=== PATIENT | male | born 1995 | race Caucasian/White ===

== ENCOUNTER 2016-04-12 14:40 | Emergency (ER) | payer BC ==
[2016-04-12 14:47] VITALS: BP 131/78; PULSE 64; TEMP 98.4; BMI 20.9
[2016-04-12] MEDS ORDERED: LIDOCAINE 2.5%/PRILOCAINE 2.5% (5 Gram/TUBE) TP ONE (15:40)
[2016-04-12] MEDS ORDERED: AMOX TR/POT CLAV 875MG/125MG TABLETS (FP) PO ONE (16:48)
[2016-04-12] MEDS ORDERED: AMOX TR/POT CLAV 875MG/125MG TABLETS (FP) ONE (16:50)
--- NOTE | 2016-04-12 16:51 | PDOC ---
History of Present Illness - General History Source: Patient Exam Limitations: No Limitations - History of Present Illness Initial Comments: 04/12/16 17:12 The patient is a 21 year old male with a significant past medical history of depression/anxiety, asthma, who presents to the ED with swelling and redness under the right eye since waking up this morning. Patient states he went to an urgent care when he was told he might have an abscess and to come in to the ED. Patient states he has never had this before. Patient uses various face washes and clearasil for acne. Patient denies any allergies. <Huseyin Villeda - Last Filed: 04/12/16 17:12> - History of Present Illness Initial Comments: 04/12/16 17:25 Patient with no history of abscesses or prior skin infections presents with pain and swelling of his right mid cheek for 2 days. There is an infected sebaceous cyst approximately 5 mm in diameter, with surrounding erythema approximately 1 cm, and edema extending to the lower eyelid. No fever or chills , decreased vision, or pain with eye movement. No pain inside the mouth Impression as infected acne cyst, with early cellulitis of the cheek, but no alicia orbital cellulitis Procedure note: EMLA was applied to the cheek for anesthesia. After waiting approximately one half hour, 1% lidocaine plain was injected as adequate local. The cyst was incised, with expression of pus. Culture was sent. The patient was prescribed oral Augmentin, first dose administered immediately. Continued on 875 mg twice a day and recommended follow-up with Dr. Pandey, plastic surgeon , in 2 or 3 days. He was instructed that if the swelling or pain worsened in 24 hours, he should return to the emergency room for reassessment. No significant pain or other discomfort and fully ambulatory upon discharge to follow-up as directed. <Quintin Pierre - Last Filed: 04/12/16 17:29> - General Chief Complaint: Pain, Acute Stated Complaint: RIGHT FACIAL SWELLING Time Seen by Provider: 04/12/16 15:32 Past History <Huseyin Villeda - Last Filed: 04/12/16 17:12> - Past Medical History Asthma: Yes Psychiatric Problems: Yes (DEPRESSION/ANXIETY) - Psycho/Social/Smoking Cessation Hx Anxiety: No Suicidal Ideation: No Smoking History: Never smoked Hx Alcohol Use: No Drug/Substance Use Hx: Yes Substance Use Type: Marijuana <Quintin Pierre - Last Filed: 04/12/16 17:29> - Past Medical History Allergies/Adverse Reactions: Allergies Allergy/AdvReac Type Severity Reaction Status Date / Time No Known Allergies Allergy Verified 04/12/16 14:41 Home Medications: Ambulatory Orders Amoxicillin/Potassium Clav [Augmentin 875-125 Tablet] 1 tab PO BID #14 tablet Clonidine HCl 0.1 mg PO DAILY 04/12/16 Paroxetine HCl [Paxil -] 12.5 mg PO DAILY 04/12/16 Review of Systems - Review of Systems Able to Perform ROS?: Yes Comments:: 04/12/16 17:12 CONSTITUTIONAL: Absent: fever, no chills, no fatigue EYES: Absent: visual changes ENT: Absent: ear pain, no sore throat CARDIOVASCULAR: Absent: chest pain, no palpitations RESPIRATORY: Absent: cough, no SOB GI: Absent: abdominal pain, no nausea, no vomiting, no constipation, no diarrhea GENITOURINARY: Absent: dysuria, no frequency, no hematuria MUSKULOSKELETAL: Absent: back pain, no arthralgia, no myalgia SKIN: Present: swelling and redness under the right eye. Absent: rash NEURO: Absent: headache <Huseyin Villeda - Last Filed: 04/12/16 17:12> *Physical Exam - Vital Signs Last Vital Signs Temp Pulse Resp BP Pulse Ox 98.4 F 64 16 131/78 100 04/12/16 14:40 04/12/16 14:40 04/12/16 14:40 04/12/16 14:40 04/12/16 14:40 - Physical Exam Comments: 04/12/16 17:12 GENERAL: Well-appearing, well-nourished. No apparent distress. HEENT: Normocephalic, atraumatic. PERRL, EOM intact. Conjunctiva was clear, the cornea was clear, and the orbital muscle function was intact. Throat and mucus membranes of the oropharynx was clear. NECK: The neck was supple and no inflammatory nodes palpable. CARDIOVASCULAR: Normal S1, S2. Regular rate and rhythm. PULMONARY: Clear to auscultation bilaterally. ABDOMEN: Soft, non-distended, non-tender. EXTREMITIES: Normal ROM in all four extremities. No gross deformities. SKIN: Diffuse swelling and erythema of the right cheek, surrounding a 5mm nodule which appeared to be an infected acne cyst. The swelling extended to the lower eyelid, but the erythema and warmth were confined to the cheek. NEUROLOGICAL: No focal neurological deficits. <Huseyin Villeda - Last Filed: 04/12/16 17:12> - Vital Signs Last Vital Signs Temp Pulse Resp BP Pulse Ox 98.4 F 64 16 131/78 100 04/12/16 14:40 04/12/16 14:40 04/12/16 14:40 04/12/16 14:40 04/12/16 14:40 <Quintin Pierre - Last Filed: 04/12/16 17:29> ED Treatment Course - Medications Given in the ED: ED Medications Discontinued Medications Generic Name Dose Route Start Last Admin Trade Name Freq PRN Reason Stop Dose Admin Amoxicillin/Clavulanate Potassium 1 tab 04/12/16 16:48 04/12/16 16:54 Augmentin - 875mg Tablet PO 04/12/16 16:49 1 tab ONCE ONE Administration <Huseyin Villeda - Last Filed: 04/12/16 17:12> *DC/Admit/Observation/Transfer - Attestations Scribe Attestion: 04/12/16 17:13 Documentation prepared by Huseyin Villeda, acting as medical scheduler for Quintin Deleon MD. <Huseyin Villeda - Last Filed: 04/12/16 17:12> - Discharge Dispostion Admit: No <Quintin Pierre - Last Filed: 04/12/16 17:29> Diagnosis at time of Disposition: Facial cellulitis - Discharge Dispostion Disposition: HOME Condition at time of disposition: Improved - Prescriptions Prescriptions: Amoxicillin/Potassium Clav [Augmentin 875-125 Tablet] 1 tab PO BID #14 tablet - Referrals Referrals: Kenji Pandey MD [Staff Physician] - 3 days - Patient Instructions Printed Discharge Instructions: DI for Cellulitis -- Adult, DI for Skin Abscess Additional Instructions: Warm compresses. Antibiotic as directed. If swelling or redness creases, especially around the eye, return to the emergency room 24 hours for recheck. Otherwise follow-up with your primary physician or plastic surgeon referral physician. - Post Discharge Activity Work/School Note: Back to School
== END 2016-04-12 17:01 | disposition home or self-care (01) ==
LOC: FER 14:40
PROC: 0H91XZZ Drainage of Face Skin, External Approach (ICD-10-PCS; principal; 2016-04-12)
DX: L02.01 Cutaneous abscess of face (principal); L03.211 Cellulitis of face
CPT/HCPCS: 87070; 87205; 99282-25